=== PATIENT | male | born 1990 | race Caucasian/White ===

== ENCOUNTER 2017-10-28 19:51 | Emergency (ER) | payer MEDICARE, OTHER ==
[~2017-10-28] VITALS: Ht 188 cm; Wt 83.1 kg
[~2017-10-28 19:51] MED LIST: CLON1 PO; DICY1TAB26 PO; HYDR-3533 PO; HYOS0.1251 PO; PHEN12.5 PR; ZOFR4TAB3 SL
[2017-10-28 20:33] VITALS: BP 156/91; PULSE 91; RESP 18; TEMP 98.4; O2SAT 100
--- NOTE | 2017-10-28 21:25 | PD ---
HPI Chief Complaint: Oral / Dental Pain or Problem Time Seen by Provider: 21:04 Travel History International Travel<30 days: No Contact w/Intl Traveler<30days: No Traveled to known affect area: No History of Present Illness HPI 27-year-old male presents to the ED for evaluation of 7.5 out of 10 pain of tooth #6. Gradual onset over the last 2 days. Pain radiates towards the eye. Patient denies sinus congestion, rhinorrhea, ear pain, sore throat, difficulty swallowing. He denies any cavity in the tooth but states that he has had bleeding of the gums as of late. PFSH Past Medical History Hx Anticoagulant Therapy: No Anxiety: Yes Cardiovascular Problems: No Chemotherapy: No Cerebrovascular Accident: No Diabetes: No Diminished Hearing: No Reproductive: Yes (epididymitis) Respiratory: No Immunizations Current: Yes Tetanus Vaccination: < 5 Years Influenza Vaccination: No Past Surgical History Hysterectomy: No Social History Alcohol Use: No Tobacco Use: No Substance Use: No Allergies-Medications (Allergen,Severity, Reaction): Coded Allergies: No Known Allergies (Unverified Adverse Reaction, Unknown, 10/28/17) Reported Meds & Prescriptions Reported Meds & Active Scripts Active Magic Mouthwash Adult Liq (Multi-Ingredient Mouthwash/Gargle) 120 Ml Susp 5 Ml SWISH-SWAL ACHS Each 5mL contains: Nystatin 200,000units, Diphenhydramine 4.25mg, Viscous Lidocaine 10mg, Champion syrup 0.8 mL Ibuprofen 600 Mg Tab 600 Mg PO Q8HR PRN Penicillin V Potassium 500 Mg Tab 500 Mg PO Q6H 7 Days Review of Systems Except as stated in HPI: all other systems reviewed are Neg Physical Exam Narrative GENERAL: Well-nourished, well-developed pleasant white male in no acute distress. SKIN: Focused skin assessment warm/dry. HEAD: Normocephalic. EYES: No scleral icterus. No injection or drainage. ENT: Pearly nieves tympanic movements bilaterally. Oropharynx without erythema, edema, exudate. DENTAL: No loose or chipped teeth. No malocclusion. Tenderness to tap of tooth #6. Erythema and plaque noted at the gumline. No drainable abscess noted. NECK: Supple, trachea midline. No JVD or lymphadenopathy. CARDIOVASCULAR: Regular rate and rhythm without murmurs, gallops, or rubs. RESPIRATORY: Breath sounds equal bilaterally. No accessory muscle use. GASTROINTESTINAL: Abdomen soft, non-tender, nondistended. MUSCULOSKELETAL: No cyanosis, or edema. BACK: Nontender without obvious deformity. No CVA tenderness. Data Data Last Documented VS Vital Signs Date Time Temp Pulse Resp B/P (MAP) Pulse Ox O2 Delivery O2 Flow Rate FiO2 10/28/17 20:33 98.4 91 18 156/91 (112) 100 Orders Orders Penicillin V Potassium (Veetids) (10/28/17 21:30) Ibuprofen (Motrin) (10/28/17 21:30) Ed Discharge Order (10/28/17 21:33) [facility] Medical Decision Making Medical Screen Exam Complete: Yes Emergency Medical Condition: Yes Differential Diagnosis Gingivitis versus dental abscess versus dental caries versus other Narrative Course 27-year-old male presents to the ED for evaluation of 2 day history of dental pain. Radiates toward the eye. No other symptoms. Vitals reviewed. On exam the patient has gingivitis and tenderness to tapping of tooth #6. Otherwise unremarkable. Patient was provided prescriptions for Penicillin VK, Magic mouthwash and ibuprofen. First doses administered in the ED. He is instructed to use good dental hygiene, follow up with the dentist. He is stable and discharged home. Diagnosis Primary Impression: Gingivitis Additional Impression: Pain, dental Referrals: Dentist Patient Instructions: Dental Caries (DC), General Instructions, Gingivitis (ED) Additional Instructions: Rest, hydrate. Begin the antibiotics tomorrow and take them until every pill is gone. 800 mg ibuprofen every 8 hours to reduce pain. Magic mouthwash swish and spit a few times a day with alternating salt water gargles. Follow-up with the dentist as discussed. Return to the ED for worsening symptoms or any urgent or emergent medical condition. Med/Other Pt SpecificInfo: Prescription(s) given Scripts Wnlemsda-Zpgoxkjvvqsjsix-Ftwmbevwo Liq (Magic Mouthwash Adult Liq) 120 Ml Susp 5 ML SWISH-SWAL ACHS for Mouth sores, #120 ML 0 Refills Each 5mL contains: Nystatin 200,000units, Diphenhydramine 4.25mg, Viscous Lidocaine 10mg, Champion syrup 0.8 mL Prov: Morro Real MD 10/28/17 Ibuprofen (Ibuprofen) 600 Mg Tab 600 MG PO Q8HR Y for PAIN, #15 TAB 0 Refills Prov: Morro Real MD 10/28/17 Penicillin V Potassium (Penicillin V Potassium) 500 Mg Tab 500 MG PO Q6H for Infection for 7 Days, #28 TAB 0 Refills Prov: Morro Real MD 10/28/17 Disposition: 01 DISCHARGE HOME Condition: Stable Ashleigh Gilbert Oct 28, 2017 21:25
[2017-10-28] MEDS ORDERED: PENI500T PO (21:27)
[2017-10-28] MEDS ORDERED: MAGICADU2 SWISH-SWAL (21:27)
[2017-10-28] MEDS ORDERED: IBUP-232 PO (21:27)
[2017-10-28] MEDS ORDERED: IBUPROFEN 800 MG TAB PO ONE (21:30)
[2017-10-28] MEDS ORDERED: PENICILLIN V POTASSIUM 500 MG TAB PO ONE (21:30)
== END 2017-10-28 21:38 | disposition home or self-care (01) ==
LOC: PHEFT 19:51
DX: K05.10 Chronic gingivitis, plaque induced (principal)
CPT/HCPCS: 99283

== ENCOUNTER 2018-06-10 13:19 | Observation (INO) ==
[2018-06-10] MEDS ORDERED: Pantoprazole Inj 40 MG Vial IV.PUSH ONE (13:37)
[2018-06-10] MEDS ORDERED: Sod Chloride 0.9% Inj 1,000 ML IV.SIG ONE (13:37)
--- NOTE | 2018-06-10 14:17 | ED ---
HPI General Chief Complaint: Abdominal Pain Stated Complaint: Abdominal Pain Time Seen by Provider: 06/10/18 13:47 Source: patient Mode of arrival: EMS Limitations: no limitations History of Present Illness HPI narrative: 27-year-old male presents the ED for evaluation of 9-day history of intermittent nausea patient states that the first episode began 9 days ago. He states he was sleeping, woke up, ran to the bathroom and had multiple episodes of nonbloody emesis. He states that this pattern has continued after he "eats or drinks anything." He states that in between these episodes he does not feel nauseated. He endorses " a few" palpitations. He denies fever, chills , CP, SOB, abdominal pain, chronic alcohol use, melena, hematochezia, hematemesis, dysuria, back pain. He endorses a few loose stools initially, has not had a bowel movement in 3 or 4 days. He states that he is otherwise healthy. He takes no daily medications. Denies history of abdominal surgery. He does state that he smokes marijuana chronically. He states that he uses several forms of marijuana including tinctures and concentrates that he gets from [place]. He is not prescribed these medications. He states that he takes them in lieu of pharmaceuticals to treat his psychiatric problems of anxiety and depression. Related Data Previous Rx's Medication Instructions Recorded ondansetron HCl [Zofran] 4 mg PO Q6H PRN #12 tab 06/05/18 prochlorperazine [Compazine] 25 mg RECTAL BID PRN #12 each 06/06/18 Allergies Allergy/AdvReac Type Severity Reaction Status Date / Time No Known Allergies Allergy Verified 06/06/18 10:59 Review of Systems ROS: all other systems reviewed are negative [facility] Medical History Medical History Anxiety (Acute) Depression (Acute) No significant past medical history (Acute) Surgical History Surgical History H/O hand surgery (Acute) Social History Social History Substance History: Active Abuse Second Hand Smoke Exposure: No Smoking Status: Never smoker How Often Do You Have a Drink Containing Alcohol: Monthly or less Recent Travel in [facility] within the Last 8 Weeks: No Recent Out of Country Travel within the Last 8 Weeks: No Substance Abuse Detail Marijuana: Substance Use Status: Active Route Used Substance Abuse: Inhalation Immunization History Tetanus Immunization: >5 Years Exam Narrative Exam Narrative: GENERAL: Thin, nontoxic-appearing white male in no acute distress. SKIN: Focused skin assessment warm/dry. HEAD: Atraumatic. Normocephalic. EYES: Pupils equal and round. No scleral icterus. No injection or drainage. ENT: No nasal bleeding or discharge. Mucous membranes pink and moist. NECK: Trachea midline. No JVD. CARDIOVASCULAR: Regular rate and rhythm. No murmur appreciated. RESPIRATORY: No accessory muscle use. Clear to auscultation. Breath sounds equal bilaterally. GASTROINTESTINAL: Abdomen soft, non-tender, nondistended. No palpable masses. No hepatosplenomegaly. No CVA tenderness. Active bowel sounds. MUSCULOSKELETAL: No obvious deformities. No clubbing. No cyanosis. No edema. NEUROLOGICAL: Awake and alert. No obvious cranial nerve deficits. Motor grossly within normal limits. Normal speech. PSYCHIATRIC: Appropriate mood and affect; insight and judgment normal. Course Initial Documented Vital Signs Temperature 98.9 F 06/10/18 13:25 Pulse Rate 82 06/10/18 13:25 Respiratory Rate 14 06/10/18 13:25 Blood Pressure 139/90 06/10/18 13:25 Pulse Oximetry 98 06/10/18 13:25 Last Documented Vital Signs Temperature 98.9 F 06/10/18 13:25 Pulse Rate 82 06/10/18 13:25 Respiratory Rate 14 06/10/18 13:25 Blood Pressure 139/90 06/10/18 13:25 Pulse Oximetry 98 06/10/18 13:25 Medical Decision Making [facility] Narrative Medical decision making narrative: 27-year-old male presents the ED for evaluation of 9-day history of intermittent nausea patient states that the first episode began 9 days ago. He has been seen twice at the [facility] with similar complaints.A dose of Zofran. Vitals reviewed. Physical exams reassuring. Patient was administered 1 L normal saline, 4 mg of Zofran IV. CMP reveals potassium of 2.6, calcium 6.6, protein corrected calcium 7.2, magnesium 1.6. Labs drawn on 06/05 showed these values in normal range. Patient was administered 40 mg KCl p.o., 20 mEq KCl IV, 1 g potassium by mouth and 1 g of magnesium IV. On recheck he reports improvement of his nausea. EKG sinus rhythm, no acute ST changes. I discussed the results of the workup with the patient as well as the recommendation for observation. He is agreeable to this plan. I spoke with who agrees to accept the patient to the medicine service. Please see medicine notes for disposition. Medical Screen Exam Complete: Yes Emergency Medical Condition: Yes Differential Diagnosis Differential Diagnosis: Cannabinoid hyperemesis versus GERD versus metabolic derangement versus other Lab Data Result diagrams: 06/10/18 14:07 06/10/18 14:07 Lab Results 06/10/18 06/10/18 Range/Units 14:07 14:07 WBC 11.0 (4.0-11.0) th/mm3 RBC 4.66 (4.50-5.90) mil/mm3 Hgb 14.9 (13.0-17.0) gm/dL Hct 44.0 (39.0-51.0) % MCV 94.4 (80.0-100.0) fL MCH 31.9 (27.0-34.0) pg MCHC 33.8 (32.0-36.0) % RDW 12.8 (11.6-17.2) % Plt Count 260 (150-450) th/mm3 MPV 9.3 (7.0-11.0) fL Neut % (Auto) 74.5 H (16.0-70.0) % Lymph % (Auto) 15.8 (9.0-44.0) % [place] % (Auto) 8.7 H (0.0-8.0) % Eos % (Auto) 0.5 (0.0-4.0) % Baso % (Auto) 0.5 (0.0-2.0) % Neut # (Auto) 8.2 H (1.8-7.7) th/mm3 Lymph # (Auto) 1.7 (1.0-4.8) th/mm3 [place] # (Auto) 1.0 H (0.0-0.9) th/mm3 Eos # (Auto) 0.1 (0.0-0.4) th/mm3 Baso # (Auto) 0.1 (0.0-0.2) th/mm3 WBC Differential . Differential Comment Auto diff final Sodium 144 (136-145) meq/L Potassium 2.6 L* (3.5-5.1) meq/L Chloride 110 H (98-107) meq/L Carbon Dioxide 22.9 (21.0-32.0) meq/L Anion Gap 11 (5-15) meq/L BUN 12 (7-18) mg/dL Creatinine 0.87 (0.60-1.30) mg/dL Estimated GFR Greater than 89 (>89) mL/min Random Glucose 70 L (74-106) mg/dL Calcium 6.6 L* (8.5-10.1) mg/dL Prot Corrected Calcium 7.2 L* (8.5-10.1) mg/dL Magnesium 1.6 (1.5-2.5) mg/dL Total Bilirubin 0.6 (0.2-1.0) mg/dL AST 11 L (15-37) U/L ALT 16 (12-78) U/L Alkaline Phosphatase 54 (45-117) U/L Total Protein 5.9 L D (6.4-8.2) g/dL Albumin 3.2 L (3.4-5.0) g/dL Lipase 49 L (73-393) U/L ECG Data EKG Prior to Arrival: No Attestation: I personally reviewed and interpreted this ECG as follows: Interpretation: Rate 82, sinus rhythm. IN interval 143, QRS 94, QTc 330 ms. Normal axis. No acute ST changes. Discharge Plan Discharge Disposition Patient Disposition: 30 Still Patient Physicians Team ED Provider: Noah Vega ED Midlevel Provider: Ashleigh Gilbert Primary Care Provider: UNKNOWN, Rxs /Orders / Referrals /Forms Prescriptions: No Action ondansetron HCl [Zofran] 4 mg tablet 4 mg PO Q6H PRN (Reason: nausea and vomiting) Qty: 12 RF: 0 prochlorperazine [Compazine] 25 mg suppository 25 mg RECTAL BID PRN (Reason: nausea and vomiting) Qty: 12 RF: 0 Discharge Interventions Interventions: Vital Signs Last Done: 06/10/18 13:25 Status ED Status: Pending Admission
[2018-06-10 14:24] LABS: Baso # (Auto) 0.1 th/mm3 (0.0-0.2); Baso % (Auto) 0.5 % (0.0-2.0); Eos # (Auto) 0.1 th/mm3 (0.0-0.4); Eos % (Auto) 0.5 % (0.0-4.0); Hemoglobin 14.9 gm/dL (13.0-17.0); Lymph # (Auto) 1.7 th/mm3 (1.0-4.8); Lymph % (Auto) 15.8 % (9.0-44.0); Mean Corpuscular HGB Conc 33.8 % (32.0-36.0); Mean Corpuscular Hemoglobin 31.9 pg (27.0-34.0); Mean Corpuscular Volume 94.4 fL (80.0-100.0); Mean Platelet Volume 9.3 fL (7.0-11.0); Mono % (Auto) 8.7 % (0.0-8.0); Neut # (Auto) 8.2 th/mm3 (1.8-7.7); Neut % (Auto) 74.5 % (16.0-70.0); Platelet Count 260 th/mm3 (150-450); Red Blood Count 4.66 mil/mm3 (4.50-5.90); Red Cell Distribution Width 12.8 % (11.6-17.2)
[2018-06-10 14:40] LABS: Albumin 3.2 g/dL (3.4-5.0); Anion Gap 11 meq/L (5-15); Aspartate Aminotransferase 11 U/L (15-37); Blood Urea Nitrogen 12 mg/dL (7-18); Calcium 6.6 mg/dL (8.5-10.1); Carbon Dioxide 22.9 meq/L (21.0-32.0); Chloride 110 meq/L (98-107); Glomerular Filtration Rate Greater Than 89 mL/min (>89); Glucose,Random 70 mg/dL (74-106); Lipase 49 U/L (73-393); Magnesium 1.6 mg/dL (1.5-2.5); Sodium 144 meq/L (136-145)
[2018-06-10 14:43] LABS: Alanine Aminotransferase 16 U/L (12-78); Alkaline Phosphatase 54 U/L (45-117); Total Protein 5.9 g/dL (6.4-8.2)
[2018-06-10 14:45] LABS: Potassium 2.6 meq/L (3.5-5.1)
[2018-06-10] MEDS ORDERED: Calcium Carbonate 500 MG Tablet PO ONE (14:45)
[2018-06-10] MEDS ORDERED: Mag Sulf 1 gm/100 ml Premix 100 ML IV.SIG ONE (14:53)
[2018-06-10] MEDS ORDERED: Acetaminophen 325 MG Tablet PO PRN (15:21)
--- NOTE | 2018-06-10 15:43 | P.HP ---
History of Present Illness Primary Care Physician: UNKNOWN Chief Complaint: Nausea and emesis History of Present Illness: 27-year-old male with no significant past medical history came to the ED for evaluation of intractable nausea and nonbloody vomiting times 9 days with inability to keep anything down. Patient also reports mild abdominal discomfort. Patient endorses use of concentrated cannabinoids, and states he has been smoking 4 times the amount of a regular person over the past 25 days however less so over the past 9 days but still elevated. He has no GI bleed, denies any chest pain or shortness of breath. Abnormal lab include potassium, calcium. Patient has no EKG changes. - Diagnosis (1) Cannabinoid hyperemesis syndrome Review of Systems All other systems reviewed negative except as stated in HPI [facility] - History History Provided By: Patient - Medical History Medical History: Medical History (Last Reviewed 06/10/18 @ 14:16 by CRISTINA Govea) Anxiety Depression No significant past medical history - Surgical History Surgical History: Surgical History (Last Reviewed 06/10/18 @ 14:16 by CRISTINA Govea) H/O hand surgery - Family History Family History: Family History (Last Updated 06/10/18 @ 15:40 by Mumtaz Vásquez MD) Other Breast cancer - Tobacco History Second Hand Smoke Exposure: No Smoking Status: Never smoker - Alcohol History How Often Do You Have a Drink Containing Alcohol: Monthly or less - Substance Use History Substance History: Active Abuse - Substance Use Type Marijuana Status: Active Route Used: Inhalation - Travel History Recent Travel in the [place] Within the Last 8 Weeks: No Recent Travel Out of the Country Within the Last 8 Weeks: No - Immunization History Tetanus Immunization: >5 Years Medications and Allergies Active Medications: Active Medications Acetaminophen (Tylenol) 650 mg PO Q4H PRN PRN Reason: Temp > 100.4 Al Hydroxide/Mg Hydroxide (Milk Of Magnesia Liq) 30 ml PO Q12H PRN PRN Reason: Mild Constipation Potassium Chloride/Sodium Chloride (Ns + Kcl 20 Meq Inj) 1,000 mls @ 125 mls/ hr IV.CONT .Q8H [place] Last Admin: 06/10/18 15:13 Dose: 125 mls/hr Magnesium Sulfate/Dextrose (Magnesium Sulfate 1 Gm/D5w 100 Ml Premix) 100 mls @ 100 mls/hr IV.SIG ONCE ONE Stop: 06/10/18 15:52 Last Admin: 06/10/18 15:14 Dose: 100 mls/hr Ondansetron HCl (Zofran Inj) 4 mg IV.PUSH Q6H PRN PRN Reason: NAUSEA OR VOMITING Sodium Chloride (Ns Flush) 2 ml IV.FLUSH PRN PRN PRN Reason: FLUSH AFTER USING IV ACCESS Last Admin: 06/10/18 13:58 Dose: 2 ml Allergies Allergy/AdvReac Type Severity Reaction Status Date / Time No Known Allergies Allergy Verified 06/06/18 10:59 Exam Vital signs: Vital Signs 06/10/18 13:25 Temperature 98.9 F Pulse Rate 82 Respiratory Rate 14 Blood Pressure 139/90 Pulse Oximetry 98 Intake & Output 06/09/18 06/10/18 06/10/18 18:59 06:59 18:59 Intake Total 1000 / 1000 Balance 1000 / 1000 Weight 77.111 kg Intake: IV 1000 / 1000 NS Inj 1,000 ML @ Wide Open IV. 1000 / 1000 SIG BOLUS ONE Rx#:[id number] Narrative: GENERAL: NAD SKIN: Warm and dry. HEAD: Atraumatic. Normocephalic. EYES: Pupils equal and round. No scleral icterus. No injection or drainage. ENT: No nasal bleeding or discharge. Mucous membranes pink and moist. NECK: Trachea midline. No JVD. CARDIOVASCULAR: Regular rate and rhythm. RESPIRATORY: No accessory muscle use. Clear to auscultation. Breath sounds equal bilaterally. GASTROINTESTINAL: Abdomen soft, non-tender, nondistended. Hepatic and splenic margins not palpable. MUSCULOSKELETAL: Extremities without clubbing, cyanosis, or edema. No obvious deformities. NEUROLOGICAL: Awake and alert. No obvious cranial nerve deficits. Motor grossly within normal limits. Five out of 5 muscle strength in the arms and legs. Normal speech. PSYCHIATRIC: Appropriate mood and affect; insight and judgment normal. Results - Labs CBC & Chem 7: 06/10/18 14:07 06/10/18 14:07 Labs: Laboratory Results - last 24 hr 06/10/18 06/10/18 14:07 14:07 WBC 11.0 RBC 4.66 Hgb 14.9 Hct 44.0 MCV 94.4 MCH 31.9 MCHC 33.8 RDW 12.8 Plt Count 260 MPV 9.3 Neut % (Auto) 74.5 H Lymph % (Auto) 15.8 [place] % (Auto) 8.7 H Eos % (Auto) 0.5 Baso % (Auto) 0.5 Neut # (Auto) 8.2 H Lymph # (Auto) 1.7 [place] # (Auto) 1.0 H Eos # (Auto) 0.1 Baso # (Auto) 0.1 WBC Differential . Differential Comment Auto diff final Sodium 144 Potassium 2.6 L* Chloride 110 H Carbon Dioxide 22.9 Anion Gap 11 BUN 12 Creatinine 0.87 Estimated GFR Greater than 89 Random Glucose 70 L Calcium 6.6 L* Prot Corrected Calcium 7.2 L* Magnesium 1.6 Total Bilirubin 0.6 AST 11 L ALT 16 Alkaline Phosphatase 54 Total Protein 5.9 L D Albumin 3.2 L Lipase 49 L Caprini VTE Risk Assessment Caprini VTE Risk Assessment: No/Low Risk (score <= 1) Caprini Risk Assessment Model: Point Value = 1 Point Value = 2 Point Value = 3 Point Value = 5 Age 41-60 Minor surgery BMI > 25 kg/m2 Swollen legs Varicose veins or History of unexplained or recurrent spontaneous Oral contraceptives or hormone replacement Sepsis (< 1 month) Serious lung disease, including pneumonia (< 1 month) Abnormal pulmonary function Acute myocardial infarction Congestive heart failure (< 1 month) History of inflammatory bowel disease Medical patient at bed rest Age 61-74 Arthroscopic surgery Major open surgery (> 45 min) Laparoscopic surgery (> 45 min) Malignancy Confined to bed (> 72 hours) Immobilizing plaster cast Central venous access Age >= 75 History of VTE Family history of VTE Factor V Leiden Prothrombin [id number] Lupus anticoagulant Anticardiolipin antibodies Elevated serum homocysteine Heparin-induced thrombocytopenia Other congenital or acquired thrombophilia Stroke (< 1 month) Elective arthroplasty Hip, pelvis, or leg fracture Acute spinal cord injury (< 1 month) Prophylaxis Regimen: Total Risk Factor Score Risk Level Prophylaxis Regimen 0-1 Low Early ambulation 2 Moderate Order ONE of the following: *Sequential Compression Device (SCD) *Heparin 5000 units SQ BID 3-4 Higher Order ONE of the following medications: *Heparin 5000 units SQ TID *Enoxaparin/Lovenox 40 mg SQ daily (WT < 150 kg, CrCl > 30 mL/min) *Enoxaparin/Lovenox 30 mg SQ daily (WT < 150 kg, CrCl > 10-29 mL/min) *Enoxaparin/Lovenox 30 mg SQ BID (WT < 150 kg, CrCl > 30 mL/min) AND/OR *Sequential Compression Device (SCD) 5 or more Highest Order ONE of the following medications: *Heparin 5000 units SQ TID (Preferred with Epidurals) *Enoxaparin/Lovenox 40 mg SQ daily (WT < 150 kg, CrCl > 30 mL/min) *Enoxaparin/Lovenox 30 mg SQ daily (WT < 150 kg, CrCl > 10-29 mL/min) *Enoxaparin/Lovenox 30 mg SQ BID (WT < 150 kg, CrCl > 30 mL/min) AND *Sequential Compression Device (SCD) Assessment and Plan - Assessment (1) Cannabinoid hyperemesis syndrome Code(s): F12.988 - Cannabis use, unspecified with other cannabis-induced disorder Status: Acute - Plan 27-year-old man with Cannabinoid hyperemesis syndrome Patient extensively counseled against cannabinoids used Conservative management with IV fluid hydration, antiemetic Gastroenterology consultation as needed if no improvement for evaluation for possible EGD Electrolyte derangement Hypokalemia, hypocalcemia Replace electrolytes and monitor Continue with NS with K Telemetry monitoring Again, patient extensively counseled against use of cannabinoid DVT prophylaxis: Low risk for VTE GI prophylaxis: PPI
[2018-06-10 17:42] LABS: Bilirubin,Urine Negative (Negative); Clarity,Urine Hazy (Clear); Color,Urine Yellow (Yellw/Straw); Glucose,Urine (UA) Negative (Negative); Leukocyte Esterase,Urine Negative (Negative); Mucus,Urine Few /lpf (Occasional); Nitrite,Urine Negative (Negative); Specific Gravity,Urine 1.028 (1.002-1.035); Urobilinogen,Urine 4 or Greater mg/dL (Less than 2)
[2018-06-11 08:44] LABS: Baso # (Auto) 0.1 th/mm3 (0.0-0.2); Baso % (Auto) 0.9 % (0.0-2.0); Eos # (Auto) 0.1 th/mm3 (0.0-0.4); Eos % (Auto) 1.7 % (0.0-4.0); Hematocrit 40.9 % (39.0-51.0); Hemoglobin 13.7 gm/dL (13.0-17.0); Lymph # (Auto) 2.2 th/mm3 (1.0-4.8); Lymph % (Auto) 30.2 % (9.0-44.0); Mean Corpuscular HGB Conc 33.4 % (32.0-36.0); Mean Corpuscular Hemoglobin 31.5 pg (27.0-34.0); Mean Corpuscular Volume 94.2 fL (80.0-100.0); Mean Platelet Volume 9.1 fL (7.0-11.0); Mono # (Auto) 0.7 th/mm3 (0.0-0.9); Mono % (Auto) 9.2 % (0.0-8.0); Neut # (Auto) 4.2 th/mm3 (1.8-7.7); Platelet Count 224 th/mm3 (150-450); Red Blood Count 4.34 mil/mm3 (4.50-5.90); Red Cell Distribution Width 12.9 % (11.6-17.2); White Blood Count 7.3 th/mm3 (4.0-11.0)
[2018-06-11 09:35] LABS: Alanine Aminotransferase 18 U/L (12-78); Albumin 3.5 g/dL (3.4-5.0); Alkaline Phosphatase 60 U/L (45-117); Anion Gap 7 meq/L (5-15); Aspartate Aminotransferase 10 U/L (15-37); Blood Urea Nitrogen 7 mg/dL (7-18); Calcium 8.1 mg/dL (8.5-10.1); Carbon Dioxide 26.7 meq/L (21.0-32.0); Chloride 106 meq/L (98-107); Glomerular Filtration Rate 87 mL/min (>89); Glucose,Random 92 mg/dL (74-106); Sodium 140 meq/L (136-145); Total Protein 6.7 g/dL (6.4-8.2)
[2018-06-11 10:23] VITALS: PULSE 71
[2018-06-11 12:27] VITALS: BP 132/80; RESP 16; TEMP 98.5; O2SAT 100
--- NOTE | 2018-06-11 12:56 | P.DS ---
Date of admission: 06/10/18 15:19 Primary care physician: UNKNOWN Brief History from admission: 27-year-old male with no significant past medical history came to the ED for evaluation of intractable nausea and nonbloody vomiting times 9 days with inability to keep anything down. Patient also reports mild abdominal discomfort. Patient endorses use of concentrated cannabinoids, and states he has been smoking 4 times the amount of a regular person over the past 25 days however less so over the past 9 days but still elevated. He has no GI bleed, denies any chest pain or shortness of breath. Abnormal lab include potassium, calcium. Patient has no EKG changes. DS: Diagnosis - Discharge Diagnosis (1) Cannabinoid hyperemesis syndrome Status: Acute DS: Medications - Discharge Medications Prescriptions: ondansetron HCl [Zofran] 4 mg PO Q6H PRN #12 tab PRN Reason: nausea and vomiting prochlorperazine [Compazine] 25 mg RECTAL BID PRN #12 each PRN Reason: nausea and vomiting DS: Summary Hospital Course: 27-year-old man with Cannabinoid hyperemesis syndrome Patient extensively counseled against cannabinoids used Conservative management with IV fluid hydration, antiemetic Gastroenterology consultation as needed if no improvement for evaluation for possible EGD Electrolyte derangement Hypokalemia, hypocalcemia Replace electrolytes and monitor Received NS with KCL supplement. However lytes improved significantly, nausea and vomiting resolved. Patient is able to tolerate food without any problems. Patient improved significantly and wants to go home. Discharged home in stable condition. Telemetry monitoring Again, patient extensively counseled against use of cannabinoid, he expressed understanding. Patient improved significantly he is tolerating food electrolytes back to normal. Discharged home in stable condition to follow-up with PCP and consultants as outpatient. - Time Spent with Patient Total time spent providing and/or coordinating discharge services: Greater than 30 minutes - Quality: VTE Deep Vein Thrombosis/Pulmonary Embolism Present on Admission: No Exam Vital signs: Vital Signs 06/10/18 13:25 06/10/18 16:00 06/10/18 17:30 Temperature 98.9 F 98.8 F Pulse Rate 82 79 78 Respiratory Rate 14 16 Blood Pressure 139/90 119/72 Pulse Oximetry 98 98 06/10/18 20:00 06/11/18 00:00 06/11/18 03:35 Temperature 98.6 F 98.5 F 98.2 F Pulse Rate 68 74 68 Respiratory Rate 14 16 14 Blood Pressure 117/73 115/74 125/74 Pulse Oximetry 98 96 97 06/11/18 08:00 06/11/18 08:06 06/11/18 12:00 Temperature 98.3 F 98.5 F Pulse Rate 70 71 71 Respiratory Rate 12 16 Blood Pressure 126/84 132/80 Pulse Oximetry 98 100 Intake & Output 06/10/18 06/11/18 06/11/18 18:59 06:59 18:59 Intake Total 1320 / 1320 2600 / 2600 1999 Output Total 250 / 250 200 / 200 Balance 1070 / 1070 2400 / 2400 1999 Weight 77.111 kg 77.11 kg Intake: IV 1100 / 1100 999 / 1000 1999 NS + KCl 20 mEq Inj 1,000 ML @ 1000 / 1000 1999 125 mls/hr IV.CONT .Q8H [facility] Rx# :[id number] Magnesium Sulfate 1 gm/D5W 100 100 / 100 ml Premix 100 ML @ 100 mls/hr IV.SIG ONCE ONE Rx#:[id number] NS Inj 1,000 ML @ Wide Open IV. 1000 / 1000 SIG BOLUS ONE Rx#:[id number] Oral 220 / 220 1600 / 1600 Output: Urine 250 / 250 200 / 200 Other: # Voids 1 4 2 Date of Last Bowel Movement 06/08/18 06/08/18 Narrative: GENERAL: Pleasant 31 yo male, in NAD CARDIOVASCULAR: Regular rate and rhythm. RESPIRATORY: No accessory muscle use. Clear to auscultation. Breath sounds equal bilaterally. GASTROINTESTINAL: Abdomen soft, non-tender, nondistended. Hepatic and splenic margins not palpable. MUSCULOSKELETAL: Extremities without clubbing, cyanosis, or edema. No obvious deformities. NEUROLOGICAL: Awake and alert. No obvious cranial nerve deficits. Motor grossly within normal limits. Five out of 5 muscle strength in the arms and legs. Normal speech. PSYCHIATRIC: Appropriate mood and affect; insight and judgment normal. Results Procedures completed during hospitalization: No procedures Labs on day of discharge: Labs from last 24 hours 06/11/18 06/11/18 06/10/18 08:02 08:02 21:03 WBC 7.3 RBC 4.34 L Hgb 13.7 Hct 40.9 MCV 94.2 MCH 31.5 MCHC 33.4 RDW 12.9 Plt Count 224 MPV 9.1 Neut % (Auto) 58.0 Lymph % (Auto) 30.2 [place] % (Auto) 9.2 H Eos % (Auto) 1.7 Baso % (Auto) 0.9 Neut # (Auto) 4.2 Lymph # (Auto) 2.2 [place] # (Auto) 0.7 Eos # (Auto) 0.1 Baso # (Auto) 0.1 WBC Differential . Differential Comment Auto diff final Sodium 140 Potassium 4.0 D Chloride 106 Carbon Dioxide 26.7 Anion Gap 7 BUN 7 Creatinine 1.04 Estimated GFR 87 L POC Glucose 132 H Random Glucose 92 Calcium 8.1 L D Prot Corrected Calcium Magnesium Total Bilirubin 0.7 AST 10 L ALT 18 Alkaline Phosphatase 60 Total Protein 6.7 D Albumin 3.5 Lipase Urine Color Urine Clarity Urine pH Ur Specific Omega Urine Protein Urine Glucose (UA) Urine Ketones Urine Occult Blood Urine Nitrate Urine Bilirubin Urine Urobilinogen Ur Leukocyte Esterase Urine WBC Urine Mucus Micro UA Comment Ur Microscopic Review Urine Culture Comments 06/10/18 06/10/18 06/10/18 19:11 17:13 14:07 WBC RBC Hgb Hct MCV MCH MCHC RDW Plt Count MPV Neut % (Auto) Lymph % (Auto) [place] % (Auto) Eos % (Auto) Baso % (Auto) Neut # (Auto) Lymph # (Auto) [place] # (Auto) Eos # (Auto) Baso # (Auto) WBC Differential Differential Comment Sodium 144 Potassium 2.6 L* Chloride 110 H Carbon Dioxide 22.9 Anion Gap 11 BUN 12 Creatinine 0.87 Estimated GFR Greater than 89 POC Glucose 78 Random Glucose 70 L Calcium 6.6 L* Prot Corrected Calcium 7.2 L* Magnesium 1.6 Total Bilirubin 0.6 AST 11 L ALT 16 Alkaline Phosphatase 54 Total Protein 5.9 L D Albumin 3.2 L Lipase 49 L Urine Color Yellow Urine Clarity Hazy H Urine pH 6.0 Ur Specific Omega 1.028 Urine Protein Negative Urine Glucose (UA) Negative Urine Ketones 80 or greater H Urine Occult Blood Negative Urine Nitrate Negative Urine Bilirubin Negative Urine Urobilinogen 4 or greater Ur Leukocyte Esterase Negative Urine WBC 1 Urine Mucus Few H Micro UA Comment Culture not ind Ur Microscopic Review Not Reportable Urine Culture Comments Culture not ind 06/10/18 14:07 WBC 11.0 RBC 4.66 Hgb 14.9 Hct 44.0 MCV 94.4 MCH 31.9 MCHC 33.8 RDW 12.8 Plt Count 260 MPV 9.3 Neut % (Auto) 74.5 H Lymph % (Auto) 15.8 [place] % (Auto) 8.7 H Eos % (Auto) 0.5 Baso % (Auto) 0.5 Neut # (Auto) 8.2 H Lymph # (Auto) 1.7 [place] # (Auto) 1.0 H Eos # (Auto) 0.1 Baso # (Auto) 0.1 WBC Differential . Differential Comment Auto diff final Sodium Potassium Chloride Carbon Dioxide Anion Gap BUN Creatinine Estimated GFR POC Glucose Random Glucose Calcium Prot Corrected Calcium Magnesium Total Bilirubin AST ALT Alkaline Phosphatase Total Protein Albumin Lipase Urine Color Urine Clarity Urine pH Ur Specific Omega Urine Protein Urine Glucose (UA) Urine Ketones Urine Occult Blood Urine Nitrate Urine Bilirubin Urine Urobilinogen Ur Leukocyte Esterase Urine WBC Urine Mucus Micro UA Comment Ur Microscopic Review Urine Culture Comments Discharge Plan - Discharge Disposition Patient Disposition: 01 Discharge Home - Discharge Condition Condition: Stable - Discharge Order Discharge Orders: Discharge Order (Routine); Ordered 06/11/18 Ordered By: Bell Welch - Physicians Team Primary Care Provider: UNKNOWN, Attending Provider: Bell Welch
--- NOTE | 2018-06-14 14:41 | ECG ---
Date Performed: 06/10/2018 Time Performed: 15:05:34 PTAGE: 27 years EKG: Sinus rhythm NONSPECIFIC ST & T-WAVE ABNORMALITY BORDERLINE ECG NO PREVIOUS TRACING DOCTOR: Casa Massey Interpretating Date/Time 06/14/2018 14:38:39
--- NOTE | 2018-06-14 17:52 | ECG ---
Date Performed: 06/10/2018 Time Performed: 21:35:40 PTAGE: 27 years EKG: Sinus rhythm NONSPECIFIC ST & T-WAVE ABNORMALITY BORDERLINE ECG PREVIOUS TRACING 06/10/18 @ 1505 Since the previous tracing, no significant change noted DOCTOR: Casa Massey Interpretating Date/Time 06/14/2018 17:50:06
== END 2018-06-11 14:37 | disposition home or self-care (01) ==
LOC: NEPE 13:19 → NEDA 13:19 → NEPFCDU 15:44
PROVIDERS: ADMIT Hospitalist; ATTEND Hospitalist